=== PATIENT | male | born 1955 | race African-American/Black ===

== ENCOUNTER 2020-01-23 22:39 | Observation (INO) ==
[2020-01-24] MEDS ORDERED: HYDROmorphone 2 MG/1 ML VIAL IV STA (00:36)
[2020-01-24] MEDS ORDERED: ONDANSETRON 4 MG/2 ML VIAL IV STA (00:36)
[2020-01-24] MEDS ORDERED: KETOROLAC 30 MG/1 ML VIAL IV STA (00:36)
[2020-01-24] MEDS ORDERED: SODIUM CHLORIDE 0.9% 500 ML IV STA (00:36)
[2020-01-24 01:29] LABS: Basophils % 0.2 % (0.0-0.8); Hematocrit 39.5 VOL% (42.0-52.0); Hemoglobin 13.5 GM/DL (14.0-18.0); Immature Granulocytes % 0.4 %; Immature Granulocytes Absolute 0.04 #; Lymphocytes # 1.4 10*3/uL (1.4-4.0); Lymphocytes % 14.3 % (21.2-54.2); Mean Corpuscular HGB Conc 34.2 GM/DL (32-36); Mean Corpuscular Volume 87.8 FL (87-102); Mean Platelet Volume 9.4 FL (9.6-12.0); Neutrophils % 79.1 % (38.7-73.9); Platelet Count 293 T/CUMM (130-400); Red Cell Distribution Width 11.7 % (9.3-17.3); White Blood Count 10.1 T/CUMM (4-12)
[2020-01-24 01:52] LABS: Alanine Aminotransferase 22 U/L (16-61); Albumin 3.2 G/DL (3.4-5.0); Alkaline Phosphatase 62 U/L (45-117); Amylase 41 U/L (25-115); Aspartate Amino Transferase 17 U/L (0-37); Blood Urea Nitrogen 16 MG/DL (7-18); Calcium 8.8 MG/DL (8.5-10.1); Estimated Glom Filtration Rate 66 ML/MIN; Glucose 210 MG/DL (74-106); Osmolality,Calculated 266.8 MOS/KG (273-304); Total Protein 6.9 G/DL (6.4-8.3)
[2020-01-24] MEDS ORDERED: MAGNESIUM SULF RIDER 2 GM in PREMIX 1 EACH IV STA (01:59)
[2020-01-24] MEDS ORDERED: GLUCAGON 1 MG VIAL IM PRN (03:31)
[2020-01-24] MEDS ORDERED: HYDROmorphone 2 MG/1 ML VIAL IV PRN (03:31)
[2020-01-24] MEDS ORDERED: DEXTROSE 50% 25 GM/50 ML SYRINGE IV PRN (03:31)
[2020-01-24] MEDS ORDERED: ACETAMINOPHEN 325 MG TABLET PO PRN (03:31)
[2020-01-24] MEDS: SODIUM CHLORIDE 0.9% 1,000 ML IV SCH ×2 (04:11→19:47)
[2020-01-24] MEDS: PIPERACILLIN/TAZOBACTAM 3,375 MG in SODIUM CHLORIDE 0.9% 100 ML IV SCH ×3 (04:15→22:46)
[2020-01-24 06:00] LABS: Basophils % 0.2 % (0.0-0.8); Eosinophils % 0.1 % (0.00-10.9); Hematocrit 41.4 VOL% (42.0-52.0); Immature Granulocytes % 0.3 %; Immature Granulocytes Absolute 0.03 #; Lymphocytes # 2.1 10*3/uL (1.4-4.0); Lymphocytes % 22.9 % (21.2-54.2); Mean Corpuscular HGB Conc 33.8 GM/DL (32-36); Mean Corpuscular Volume 88.7 FL (87-102); Mean Platelet Volume 9.3 FL (9.6-12.0); Monocytes % 5.6 % (1.7-12.7); Neutrophils % 70.9 % (38.7-73.9); Platelet Count 294 T/CUMM (130-400); Red Blood Count 4.67 MC/CUMM (3.8-5.5); Red Cell Distribution Width 11.9 % (9.3-17.3)
[2020-01-24 06:20] LABS: Albumin 3.3 G/DL (3.4-5.0); Bilirubin,Total 0.7 MG/DL (0.2-1.0); Calcium 9.1 MG/DL (8.5-10.1); Osmolality,Calculated 275.8 MOS/KG (273-304)
[2020-01-24 06:39] LABS: Apearance,Urine CLEAR (Clear); Bilirubin,Urine Negative (Negative); Blood, Urine Negative (Negative); Glucose,Urine (UA) 50 mg/dL (Negative); Ketones,Urine Negative (Negative); Mucus,Urine Occasional /LPF (Occasional); Nitrite,Urine Negative (Negative); Protein,Urine Negative; RBC,Urine 5 /HPF (0-4); Urine Color Yellow (Yellow); Urine Specific Gravity > 1.060 (1.001-1.035); Urine Urobilinogen < 2.0 EU/DL (0.2-1.0); WBC,Urine <1 /HPF (0-6)
[2020-01-24] MEDS: INSULIN REGULAR 100 UNIT/ML SUBCUT SCH ×3 (07:11→18:54)
[2020-01-24] MEDS: VALSARTAN 160 MG TABLET PO SCH (09:21)
[2020-01-24] MEDS: amLODIPine 5 MG TABLET PO SCH (09:21)
[2020-01-24] MEDS: PANTOPRAZOLE 40 MG TABLET PO SCH (10:20)
[2020-01-24] MEDS: GLIMEPIRIDE 2 MG TABLET PO SCH (10:20)
[2020-01-24] MEDS ORDERED: LIDOCAINE 1%/EPI INJ 20 ML VIAL ONE (11:54)
[2020-01-24] MEDS ORDERED: BUPIVACAINE MPF 0.25% 30 ML VIAL ONE (11:54)
[2020-01-24] MEDS ORDERED: ACETAMINOPHEN 1,000 MG/100 ML VIAL IV ONE (13:07)
[2020-01-24] MEDS ORDERED: LIDOCAINE 2% 5 ML VIAL ONE (13:32)
[2020-01-24] MEDS ORDERED: ONDANSETRON 4 MG/2 ML VIAL ONE ×2 (13:32→14:04)
[2020-01-24] MEDS ORDERED: SEVOFLURANE 1 UNIT/15 MINUTE INH ONE (13:32)
[2020-01-24] MEDS ORDERED: propofoL 200 MG/20 ML VIAL IV ONE (13:32)
[2020-01-24] MEDS ORDERED: fentaNYL 100 MCG/2 ML VIAL ONE (13:32)
[2020-01-24] MEDS ORDERED: MIDAZOLAM 2 MG/2 ML VIAL ONE (13:32)
[2020-01-24] MEDS ORDERED: PHENYLEPHRINE 10 MG/1 ML VIAL IV ONE (13:33)
[2020-01-24] MEDS ORDERED: GLYCOPYRROLATE 0.4 MG/2 ML VIAL ONE (13:33)
[2020-01-24] MEDS ORDERED: LACTATED RINGERS 1,000 ML IV ONE (13:33)
[2020-01-24] MEDS ORDERED: NEOSTIGMINE 10 MG/10 ML VIAL ONE (13:33)
[2020-01-24] MEDS ORDERED: HYDROmorphone 2 MG/1 ML VIAL ONE (14:04)
[2020-01-24] MEDS: HYDROmorphone 2 MG/1 ML VIAL IV PRN ×2 (14:05→14:16)
[2020-01-24] MEDS ORDERED: ONDANSETRON 4 MG/2 ML VIAL IV PRN (14:09)
[2020-01-24] MEDS ORDERED: ENOXAPARIN 40 MG/0.4 ML SYRINGE SUBCUT SCH (20:26)
[2020-01-24] MEDS ORDERED: SIMVASTATIN 10 MG TABLET PO SCH (21:00)
[2020-01-24] MEDS ORDERED: ASPIRIN EC 81 MG TABLET PO SCH (21:00)
[2020-01-24] MEDS ORDERED: sitaGLIPtin 100 MG TABLET PO SCH (21:00)
[2020-01-25] MEDS: INSULIN REGULAR 100 UNIT/ML SUBCUT SCH ×3 (00:55→12:41)
[2020-01-25] MEDS: PIPERACILLIN/TAZOBACTAM 3,375 MG in SODIUM CHLORIDE 0.9% 100 ML IV SCH (06:16)
[2020-01-25 06:22] LABS: Basophils % 0.2 % (0.0-0.8); Eosinophils % 0.4 % (0.00-10.9); Hematocrit 35.3 VOL% (42.0-52.0); Hemoglobin 12.2 GM/DL (14.0-18.0); Immature Granulocytes % 0.4 %; Immature Granulocytes Absolute 0.04 #; Lymphocytes # 1.4 10*3/uL (1.4-4.0); Lymphocytes % 14.2 % (21.2-54.2); Mean Corpuscular HGB Conc 34.6 GM/DL (32-36); Mean Corpuscular Volume 87.8 FL (87-102); Mean Platelet Volume 9.5 FL (9.6-12.0); Monocytes % 5.9 % (1.7-12.7); Neutrophils % 78.9 % (38.7-73.9); Platelet Count 244 T/CUMM (130-400); Red Blood Count 4.02 MC/CUMM (3.8-5.5); Red Cell Distribution Width 11.7 % (9.3-17.3); White Blood Count 9.8 T/CUMM (4-12)
[2020-01-25 06:42] LABS: Calcium 8.3 MG/DL (8.5-10.1)
[2020-01-25] MEDS: GLIMEPIRIDE 2 MG TABLET PO SCH (09:57)
[2020-01-25] MEDS: VALSARTAN 160 MG TABLET PO SCH (09:58)
[2020-01-25] MEDS: PANTOPRAZOLE 40 MG TABLET PO SCH (10:00)
[2020-01-25] MEDS: amLODIPine 5 MG TABLET PO SCH (10:05)
[2020-01-25 11:33] VITALS: BP 103/51
== END 2020-01-25 14:25 | disposition home or self-care (01) ==
LOC: N.ED 22:39 → N.EDINP 01-24 02:24 → INTOOBSV 01-24 02:24 → N.3E 01-24 02:46
PROVIDERS: ADMIT Surgery; ATTEND Surgery

== ENCOUNTER 2020-02-15 05:53 | Inpatient (IN) ==
[2020-02-15] MEDS ORDERED: ALVIMOPAN 12 MG CAPSULE ONE (06:01)
[2020-02-15] MEDS ORDERED: FAMOTIDINE 20 MG TABLET PO ONE (06:18)
[2020-02-15] MEDS ORDERED: DIAZEPAM 5 MG TABLET PO ONE (06:18)
[2020-02-15] MEDS ORDERED: LIDOCAINE 1% 5 ML VIAL ONE (06:28)
[2020-02-15] MEDS ORDERED: DEXAMETHASONE 4 MG/1 ML VIAL ONE ×2 (06:28→09:53)
[2020-02-15] MEDS ORDERED: INDOCYANINE GREEN 25 MG VIAL IV ONE (06:29)
[2020-02-15] MEDS ORDERED: TISSUE ADHESIVE 1 EACH APPLICATOR TOP ONE (06:29)
[2020-02-15] MEDS ORDERED: BUPIVACAINE MPF 0.25% 30 ML VIAL ONE ×2 (06:29)
[2020-02-15] MEDS ORDERED: LACTATED RINGERS 1,000 ML IV SCH (06:30)
[2020-02-15] MEDS ORDERED: ALVIMOPAN 12 MG CAPSULE PO ONE (06:30)
[2020-02-15] MEDS ORDERED: cefOXitin 1,000 MG in SYRINGE 1 EACH IV ONE (06:30)
[2020-02-15] MEDS ORDERED: DIAZEPAM 5 MG TABLET ONE (06:33)
[2020-02-15] MEDS ORDERED: FAMOTIDINE 20 MG TABLET ONE (06:33)
[2020-02-15] MEDS ORDERED: LIDOCAINE 2% 5 ML VIAL ONE (09:52)
[2020-02-15] MEDS ORDERED: propofoL 200 MG/20 ML VIAL IV ONE (09:52)
[2020-02-15] MEDS ORDERED: fentaNYL 100 MCG/2 ML VIAL ONE (09:53)
[2020-02-15] MEDS ORDERED: MIDAZOLAM 2 MG/2 ML VIAL ONE (09:53)
[2020-02-15] MEDS ORDERED: SEVOFLURANE 1 UNIT/15 MINUTE INH ONE (09:53)
[2020-02-15] MEDS ORDERED: GLYCOPYRROLATE 0.4 MG/2 ML VIAL ONE (09:53)
[2020-02-15] MEDS ORDERED: ONDANSETRON 4 MG/2 ML VIAL ONE (09:53)
[2020-02-15] MEDS ORDERED: KETOROLAC 30 MG/1 ML VIAL ONE (09:53)
[2020-02-15] MEDS ORDERED: PHENYLEPHRINE 1 MG/10 ML SYRINGE IV ONE (09:54)
[2020-02-15] MEDS ORDERED: LACTATED RINGERS 1,000 ML IV ONE (09:54)
[2020-02-15] MEDS ORDERED: ROCURONIUM 100 MG/10 ML VIAL IV ONE (09:54)
[2020-02-15] MEDS ORDERED: NEOSTIGMINE 10 MG/10 ML VIAL ONE (09:54)
[2020-02-15] MEDS ORDERED: KETOROLAC 15 MG/1 ML VIAL IV PRN (10:01)
[2020-02-15] MEDS ORDERED: ACETAMINOPHEN 325 MG TABLET PO PRN (10:01)
[2020-02-15] MEDS ORDERED: ALBUTEROL/IPRATROPIUM 3 ML NEB RESP TX PRN (10:01)
[2020-02-15] MEDS ORDERED: ONDANSETRON 4 MG/2 ML VIAL IV PRN ×2 (10:01→10:27)
[2020-02-15] MEDS ORDERED: HYDROmorphone 2 MG/1 ML VIAL IV PRN ×2 (10:01)
[2020-02-15] MEDS ORDERED: DEXTROSE 10% 250 ML BAG IV PRN (10:08)
[2020-02-15] MEDS ORDERED: GLUCAGON 1 MG VIAL IM PRN (10:08)
[2020-02-15] MEDS: HYDROmorphone 2 MG/1 ML VIAL IV PRN ×3 (10:30→10:51)
[2020-02-15] MEDS: LACTATED RINGERS 1,000 ML IV SCH ×2 (10:36→18:27)
[2020-02-15] MEDS: METOCLOPRAMIDE 10 MG/2 ML VIAL IV SCH ×2 (11:36→17:20)
[2020-02-15 11:40] LABS: Hemoglobin 13.5 GM/DL (14.0-18.0)
[2020-02-15] MEDS: INSULIN LISPRO 100 UNIT/ML SUBCUT SCH ×2 (11:56→16:50)
[2020-02-15] MEDS: cefOXitin 2,000 MG in SYRINGE 1 EACH IV SCH ×2 (16:50→17:19)
[2020-02-15] MEDS: ALVIMOPAN 12 MG CAPSULE PO SCH (21:08)
[2020-02-15] MEDS: SIMVASTATIN 10 MG TABLET PO SCH (21:08)
[2020-02-15] MEDS: ASPIRIN EC 81 MG TABLET PO SCH (21:08)
[2020-02-16] MEDS: cefOXitin 2,000 MG in SYRINGE 1 EACH IV SCH ×2 (00:15→06:02)
[2020-02-16] MEDS: METOCLOPRAMIDE 10 MG/2 ML VIAL IV SCH ×5 (00:18→23:24)
[2020-02-16] MEDS: LACTATED RINGERS 1,000 ML IV SCH (02:30)
[2020-02-16] MEDS ORDERED: cefOXitin 2,000 MG in SYRINGE 1 EACH IV SCH (05:30)
[2020-02-16 05:41] LABS: Hematocrit 31.9 VOL% (42.0-52.0); Hemoglobin 11.3 GM/DL (14.0-18.0); Immature Granulocytes % 0.5 %; Immature Granulocytes Absolute 0.05 #; Lymphocytes # 1.8 10*3/uL (1.4-4.0); Lymphocytes % 19.2 % (21.2-54.2); Mean Corpuscular HGB Conc 35.4 GM/DL (32-36); Mean Corpuscular Volume 84.4 FL (87-102); Mean Platelet Volume 9.4 FL (9.6-12.0); Monocytes % 9.2 % (1.7-12.7); Neutrophils % 71.1 % (38.7-73.9); Platelet Count 319 T/CUMM (130-400); Red Blood Count 3.78 MC/CUMM (3.8-5.5); Red Cell Distribution Width 11.7 % (9.3-17.3); White Blood Count 9.4 T/CUMM (4-12)
[2020-02-16 06:10] LABS: Calcium 9.2 MG/DL (8.5-10.1); Osmolality,Calculated 277.5 MOS/KG (273-304)
[2020-02-16] MEDS: OLMESARTAN 20 MG TABLET PO SCH (09:01)
[2020-02-16] MEDS: amLODIPine 5 MG TABLET PO SCH (09:02)
[2020-02-16] MEDS: ALVIMOPAN 12 MG CAPSULE PO SCH ×2 (09:02→20:31)
[2020-02-16] MEDS: INSULIN LISPRO 100 UNIT/ML SUBCUT SCH ×3 (09:03→16:21)
[2020-02-16] MEDS: PANTOPRAZOLE 40 MG VIAL IV SCH (09:04)
[2020-02-16] MEDS: ASPIRIN EC 81 MG TABLET PO SCH (20:31)
[2020-02-16] MEDS: SIMVASTATIN 10 MG TABLET PO SCH (20:31)
[2020-02-17] MEDS: METOCLOPRAMIDE 10 MG/2 ML VIAL IV SCH ×3 (05:41→18:09)
[2020-02-17 06:22] LABS: Basophils % 0.3 % (0.0-0.8); Eosinophils # 0.1 10*3/uL (0.0-0.87); Eosinophils % 1.6 % (0.00-10.9); Hematocrit 33.2 VOL% (42.0-52.0); Hemoglobin 11.4 GM/DL (14.0-18.0); Immature Granulocytes % 0.3 %; Immature Granulocytes Absolute 0.02 #; Lymphocytes # 1.8 10*3/uL (1.4-4.0); Mean Corpuscular HGB Conc 34.3 GM/DL (32-36); Mean Corpuscular Volume 85.3 FL (87-102); Mean Platelet Volume 9.7 FL (9.6-12.0); Neutrophils % 58.8 % (38.7-73.9); Platelet Count 285 T/CUMM (130-400); Red Blood Count 3.89 MC/CUMM (3.8-5.5); Red Cell Distribution Width 11.9 % (9.3-17.3); White Blood Count 6.3 T/CUMM (4-12)
[2020-02-17 06:47] LABS: Calcium 8.8 MG/DL (8.5-10.1); Osmolality,Calculated 276.5 MOS/KG (273-304)
[2020-02-17] MEDS: ALVIMOPAN 12 MG CAPSULE PO SCH ×2 (08:48→20:51)
[2020-02-17] MEDS: OLMESARTAN 20 MG TABLET PO SCH (08:48)
[2020-02-17] MEDS: PANTOPRAZOLE 40 MG VIAL IV SCH (08:48)
[2020-02-17] MEDS: amLODIPine 5 MG TABLET PO SCH (08:48)
[2020-02-17] MEDS: INSULIN LISPRO 100 UNIT/ML SUBCUT SCH ×3 (08:58→17:59)
[2020-02-17] MEDS: SIMVASTATIN 10 MG TABLET PO SCH (20:50)
[2020-02-17] MEDS: ASPIRIN EC 81 MG TABLET PO SCH (20:51)
[2020-02-18] MEDS: METOCLOPRAMIDE 10 MG/2 ML VIAL IV SCH ×2 (00:41→06:22)
[2020-02-18 08:32] VITALS: BP 121/71
[2020-02-18] MEDS: INSULIN LISPRO 100 UNIT/ML SUBCUT SCH (09:09)
[2020-02-18] MEDS: OLMESARTAN 20 MG TABLET PO SCH (09:14)
[2020-02-18] MEDS: amLODIPine 5 MG TABLET PO SCH (09:14)
[2020-02-18] MEDS: PANTOPRAZOLE 40 MG VIAL IV SCH (09:14)
== END 2020-02-18 10:05 | disposition home or self-care (01) | DRG 330 ==
LOC: N.OR 05:53 → N.SDSINP 05:54 → N.3E 09:37
PROVIDERS: ADMIT Surgery; ATTEND Surgery

== ENCOUNTER 2022-08-27 05:00 | Inpatient (IN) ==
[2022-08-27] MEDS ORDERED: PANTOPRAZOLE 40 MG VIAL IV STA (05:21)
[2022-08-27] MEDS ORDERED: SODIUM CHLORIDE 0.9% 1,000 ML IV STA (05:21)
[2022-08-27] MEDS ORDERED: ONDANSETRON 4 MG/2 ML VIAL IV STA (05:21)
[2022-08-27 05:36] LABS: Basophils % 0.2 % (0.0-0.8); Hematocrit 31.7 VOL% (42.0-52.0); Hemoglobin 10.2 GM/DL (14.0-18.0); Immature Granulocytes % 0.5 %; Immature Granulocytes Absolute 0.07 #; Lymphocytes # 2.4 10*3/uL (1.4-4.0); Lymphocytes % 18.3 % (21.2-54.2); Mean Corpuscular HGB Conc 32.2 GM/DL (32-36); Mean Corpuscular Volume 86.1 FL (87-102); Mean Platelet Volume 9.8 FL (9.6-12.0); Monocytes # 0.6 10*3/uL (0.11-0.8); Monocytes % 4.5 % (1.7-12.7); Neutrophils % 76.5 % (38.7-73.9); Platelet Count 362 T/CUMM (130-400); Red Blood Count 3.68 MC/CUMM (3.8-5.5); White Blood Count 12.9 T/CUMM (4-12)
[2022-08-27 05:43] LABS: PT Patient Result 11.1 SECS (10.1-12.1); Partial Thromboplastin Time 20.8 SECS (23.7-32.9)
[2022-08-27] MEDS ORDERED: SODIUM CHLORIDE 0.9% 1,000 ML IV PRN (06:08)
[2022-08-27] MEDS ORDERED: ONDANSETRON 4 MG/2 ML VIAL IV PRN (06:08)
[2022-08-27] MEDS ORDERED: ACETAMINOPHEN 325 MG TABLET PO PRN (06:08)
[2022-08-27] MEDS ORDERED: HYDROmorphone 2 MG TABLET PO PRN (06:08)
[2022-08-27] MEDS ORDERED: GLUCAGON 1 MG VIAL IM PRN (06:08)
[2022-08-27 06:11] LABS: Albumin 3.2 G/DL (3.4-5.0); Bilirubin,Total 0.5 MG/DL (0.20-1.00); Calcium 9.6 MG/DL (8.5-10.1); Osmolality,Calculated 297.5 MOS/KG (273-304); Potassium 4.7 MMOL/L (3.5-5.1); Total Protein 6.6 G/DL (6.4-8.2)
[2022-08-27] MEDS ORDERED: DEXTROSE 10% 250 ML BAG IV PRN (06:11)
[2022-08-27] MEDS: SODIUM CHLORIDE 0.9% 1,000 ML IV SCH (08:40)
[2022-08-27] MEDS ORDERED: PANTOPRAZOLE 40 MG VIAL IV SCH (09:00)
[2022-08-27 09:47] LABS: Hepatitis B Core IgM Quant 0.12 Index; Hepatitis B Surface Ag Quant < 0.10 Index; Hepatitis B Surface Ag Result Non-Reactive (NonReactive); Hepatitis C Virus Ab Quant 0.23 Index; Hepatitis C Virus Ab Result Non-Reactive (NonReactive)
[2022-08-27] MEDS: LACTATED RINGERS 1,000 ML IV SCH (11:36)
[2022-08-27] MEDS ORDERED: FAMOTIDINE 20 MG/2 ML VIAL IV ONE (11:44)
[2022-08-27] MEDS ORDERED: propofoL 200 MG/20 ML VIAL IV ONE ×2 (12:11→12:30)
[2022-08-27] MEDS ORDERED: LIDOCAINE 2% 5 ML VIAL ONE (12:11)
[2022-08-27] MEDS ORDERED: METOPROLOL TARTRATE 25 MG TABLET PO ONE (12:56)
[2022-08-27] MEDS ORDERED: FERROUS SULFATE 325 MG TABLET PO SCH (14:41)
[2022-08-27] MEDS: INSULIN REGULAR 100 UNIT/ML SUBCUT SCH ×4 (14:48→23:33)
[2022-08-27] MEDS: DOCUSATE SODIUM 100 MG CAPSULE PO SCH ×2 (14:49→21:12)
[2022-08-27 15:24] LABS: Hematocrit 25.8 VOL% (42.0-52.0); Hemoglobin 8.4 GM/DL (14.0-18.0)
[2022-08-27] MEDS ORDERED: PIOGLITAZONE 15 MG TABLET PO SCH (16:00)
[2022-08-27] MEDS: GLIMEPIRIDE 4 MG TABLET PO SCH (17:34)
[2022-08-27] MEDS: FERROUS SULFATE 325 MG TABLET PO SCH (20:36)
[2022-08-27] MEDS: sitaGLIPtin 100 MG TABLET PO SCH (20:36)
[2022-08-27] MEDS: ASPIRIN EC 81 MG TABLET PO SCH (21:12)
[2022-08-28] MEDS: SODIUM CHLORIDE 0.9% 1,000 ML IV SCH ×4 (00:04→13:32)
[2022-08-28 04:47] LABS: Basophils % 0.4 % (0.0-0.8); Eosinophils # 0.1 10*3/uL (0.0-0.87); Eosinophils % 1.2 % (0.00-10.9); Hemoglobin 7.2 GM/DL (14.0-18.0); Immature Granulocytes % 0.4 %; Immature Granulocytes Absolute 0.03 #; Lymphocytes # 2.7 10*3/uL (1.4-4.0); Mean Corpuscular HGB Conc 32.7 GM/DL (32-36); Mean Corpuscular Volume 86.3 FL (87-102); Mean Platelet Volume 9.6 FL (9.6-12.0); Monocytes # 0.6 10*3/uL (0.11-0.8); Monocytes % 8.7 % (1.7-12.7); Neutrophils % 49.3 % (38.7-73.9); Platelet Count 234 T/CUMM (130-400); Red Blood Count 2.55 MC/CUMM (3.8-5.5); Red Cell Distribution Width 15.5 % (9.3-17.3); White Blood Count 6.7 T/CUMM (4-12)
[2022-08-28 05:13] LABS: Alanine Aminotransferase 50 U/L (16-61); Albumin 2.6 G/DL (3.4-5.0); Alkaline Phosphatase 35 U/L (45-117); Aspartate Amino Transferase 24 U/L (0-37); Bilirubin,Total < 0.39 MG/DL (0.20-1.00); Blood Urea Nitrogen 28 MG/DL (7-18); Calcium 7.8 MG/DL (8.5-10.1); Carbon Dioxide 23 MMOL/L (21-32); Chloride 108 MMOL/L (98-107); Glucose 109 MG/DL (74-106); Osmolality,Calculated 281.7 MOS/KG (273-304); Sodium 138 MMOL/L (136-145); Total Protein 5.3 G/DL (6.4-8.2); Uric Acid 4.7 MG/DL (3.5-7.2)
[2022-08-28] MEDS: INSULIN REGULAR 100 UNIT/ML SUBCUT SCH ×3 (05:57→17:41)
[2022-08-28] MEDS: PANTOPRAZOLE 40 MG VIAL IV SCH ×2 (09:12→20:12)
[2022-08-28] MEDS: INSULIN GLARGINE 100 UNIT/ML SUBCUT SCH (09:13)
[2022-08-28] MEDS: GLIMEPIRIDE 4 MG TABLET PO SCH ×2 (09:14→17:41)
[2022-08-28] MEDS: METOPROLOL TARTRATE 25 MG TABLET PO SCH ×2 (09:14→20:07)
[2022-08-28] MEDS: DOCUSATE SODIUM 100 MG CAPSULE PO SCH ×2 (09:14→20:08)
[2022-08-28] MEDS: FERROUS SULFATE 325 MG TABLET PO SCH ×2 (09:15→20:07)
[2022-08-28] MEDS: PIOGLITAZONE 15 MG TABLET PO SCH (09:22)
[2022-08-28] MEDS ORDERED: FUROSEMIDE 20 MG/2 ML VIAL IV ONE (10:00)
[2022-08-28] MEDS: LACTATED RINGERS 1,000 ML IV SCH (11:47)
[2022-08-28 16:25] LABS: Hematocrit 30.1 VOL% (42.0-52.0); Hemoglobin 10.1 GM/DL (14.0-18.0)
[2022-08-28] MEDS: sitaGLIPtin 100 MG TABLET PO SCH (20:07)
[2022-08-28] MEDS: ASPIRIN EC 81 MG TABLET PO SCH (20:12)
[2022-08-29] MEDS: INSULIN REGULAR 100 UNIT/ML SUBCUT SCH ×3 (00:21→11:56)
[2022-08-29] MEDS: SODIUM CHLORIDE 0.9% 1,000 ML IV SCH ×2 (01:05→10:47)
[2022-08-29] MEDS: DOCUSATE SODIUM 100 MG CAPSULE PO SCH (09:29)
[2022-08-29] MEDS: PANTOPRAZOLE 40 MG VIAL IV SCH (09:29)
[2022-08-29] MEDS: FERROUS SULFATE 325 MG TABLET PO SCH (09:29)
[2022-08-29] MEDS: PIOGLITAZONE 15 MG TABLET PO SCH (09:29)
[2022-08-29] MEDS: GLIMEPIRIDE 4 MG TABLET PO SCH (09:29)
[2022-08-29] MEDS: METOPROLOL TARTRATE 25 MG TABLET PO SCH (09:30)
[2022-08-29] MEDS: INSULIN GLARGINE 100 UNIT/ML SUBCUT SCH (09:31)
[2022-08-29 10:55] LABS: Hemoglobin 10.5 GM/DL (14.0-18.0)
[2022-08-29 12:09] VITALS: BP 113/61
== END 2022-08-29 14:07 | disposition home or self-care (01) | DRG 378 ==
LOC: N.ED 05:00 → N.EDINP 05:52 → N.5E 11:09
PROVIDERS: ADMIT Internal Medicine; ATTEND Internal Medicine